=== PATIENT | female | born 1985 | race American Indian/Alaskan Native ===

== ENCOUNTER 2016-10-08 11:09 | Emergency (ER) | payer OTHER ==
[2016-10-08 11:22] VITALS: BP 95/66; PULSE 100; TEMP 98; BMI 24.7
[2016-10-08 11:58] LABS: URINE APPEARANCE SLCLOUDY; URINE BILIRUBIN NEGATIVE (NEGATIVE); URINE BLOOD NEGATIVE (NEGATIVE); URINE COLOR YELLOW; URINE GLUCOSE (UA) NEGATIVE (NEGATIVE); URINE KETONE NEGATIVE (NEGATIVE); URINE LEUK ESTERASE NEGATIVE (NEGATIVE); URINE NITRITE NEGATIVE (NEGATIVE); URINE PROTEIN NEGATIVE (NEGATIVE); URINE UROBILINOGEN NEGATIVE E.U./dl (0.2-1.0)
[2016-10-08] MEDS ORDERED: SODIUM CHLORIDE 1,000 ML IV STA (12:03)
[2016-10-08] MEDS ORDERED: PANTOPRAZOLE SODIUM 40 MG in SODIUM CHLORIDE 100 ML IVPB ONE (12:03)
[2016-10-08] MEDS ORDERED: PANTOPRAZOLE SODIUM 100 ML IVPB ONE (12:05)
[2016-10-08 12:12] LABS: BASOPHIL 1.2 % (0-2.0); EOSINOPHIL 3.5 % (0-4.5); MCH 28.8 pg (25.7-33.7); MCHC 35.2 g/dl (32.0-36.0); MEAN CELL VOLUME 81.8 fl (80-96); MEAN PLT VOLUME 6.8 fl (7.5-11.1); NEUTROPHILS 48.2 % (42.8-82.8); PLATELET COUNT 215 K/MM3 (134-434); RDW 13.6 % (11.6-15.6); WHITE BLOOD COUNT 4.5 K/mm3 (4.0-10.0)
--- NOTE | 2016-10-08 12:18 | PDOC ---
History of Present Illness - General Chief Complaint: Pain Stated Complaint: 12 wks preg ABD PAIN Time Seen by Provider: 10/08/16 11:35 History Source: Patient Exam Limitations: No Limitations - History of Present Illness Travel History: No Initial Comments: 10/08/16 12:08 31-year-old female currently 12 weeks presents with epigastric pain worsened with eating over the past few days. Patient also said lower abdominal cramping for the past week associated constipation. Patient states took no medication for the above and decided come to the ER for further evaluation. Patient states has had a normal ultrasound for this and has mentioned the epigastric pain to her APRICOT WASHER who recommended her to take Maalox which she states has taken without improvement. Patient denies chest pain, shortness of breath, dysuria, hematuria, vaginal discharge, low back pain, change in appetite , or recent illness. Timing/Duration: reports: intermittent Quality: reports: mild, burning Abdominal Pain Onset Location: reports: epigastric Pain Radiation: reports: RLQ, LLQ Activities at Onset: reports: none Aggravating Factors: improves with: Eating Alleviating Factors: improves with: None Past History - Past Medical History Allergies/Adverse Reactions: Allergies Allergy/AdvReac Type Severity Reaction Status Date / Time No Known Allergies Allergy Verified 10/08/16 11:18 Home Medications: Ambulatory Orders Docusate Sodium [Colace -] 100 mg PO BID #60 capsule 06/20/16 Esomeprazole Magnesium [Nexium 24Hr] 20 mg PO DAILY 06/20/16 Esomeprazole Sodium 20 mg PO DAILY #20 vial 06/20/16 Hydrocortisone Acetate [Anusol Hc Suppository -] 25 mg RC DAILY #14 supp.rect Polyethylene Glycol 3350 [Miralax (For Bowel Prep) -] 17 gm PO DAILY #1 bottle 06/20/16 GI Disorders: Yes (ULCER) - Reproductive History Is Patient Now?: Yes (#): 4 Para: 3 - Psycho/Social/Smoking Cessation Hx Anxiety: No Suicidal Ideation: No Smoking History: Never smoked Have you smoked in the past 12 months: No Information on smoking cessation initiated: No Hx Alcohol Use: No Drug/Substance Use Hx: No Substance Use Type: None Patient Lives Alone: No Lives with/in: spouse/SO Review of Systems - Review of Systems Able to Perform ROS?: Yes Constitutional: No: Symptoms Reported HEENTM: No: Symptoms Reported Respiratory: No: Symptoms reported Cardiac (ROS): No: Symptoms Reported ABD/GI: Yes: Constipated, Abdominal cramping : No: Symptoms Reported Musculoskeletal: No: Symptoms Reported Integumentary: No: Symptoms Reported Neurological: No: Symptoms reported Endocrine: No: Symptoms Reported *Physical Exam - Vital Signs Last Vital Signs Temp Pulse Resp BP Pulse Ox 98.0 F 100 H 18 95/66 100 10/08/16 11:19 10/08/16 11:19 10/08/16 11:19 10/08/16 11:19 10/08/16 11:19 - Physical Exam General Appearance: Yes: Nourished, Appropriately Dressed. No: Apparent Distress HEENT: positive: EOMI. negative: Pale Conjunctivae Neck: positive: Normal Thyroid, Supple Respiratory/Chest: positive: Lungs Clear, Normal Breath Sounds. negative: Respiratory Distress, Accessory Muscle Use Cardiovascular: positive: Regular Rhythm, Regular Rate. negative: Murmur Female Pelvic Exam: positive: normal external exam (no discharge or bleeding) Gastrointestinal/Abdominal: positive: Soft, Tenderness (epigastric and lower periumbilical) Musculoskeletal: negative: CVA Tenderness Extremity: positive: Normal Capillary Refill. negative: Pedal Edema Integumentary: positive: Normal Color, Warm, Moist Neurologic: positive: Motor Strength 5/5 (ambulatory) ED Treatment Course - LABORATORY CBC & Chemistry Diagram: 10/08/16 11:37 10/08/16 11:37 - RADIOLOGY Radiology Studies Ordered: Category Date Time Status <14WKS US [US] Stat Ultrasound 10/08/16 12:03 Ordered Medical Decision Making - Medical Decision Making 10/08/16 12:21 Patient currently 12 weeks with indigestion and constipation. Patient on exam had epigastric tenderness and lower periumbilical pain. Patient ordered for urine, labs, IV fluids, Protonix, an ultrasound. 10/08/16 13:47 Laboratory Tests 10/08/16 10/08/16 10/08/16 11:37 11:37 11:37 WBC 4.5 Hgb 11.3 Hct 32.2 L Plt Count 215 D Neutrophils % 48.2 D Sodium 137 Potassium 3.7 Chloride 105 Carbon Dioxide 23 Anion Gap 9 BUN 10 D Creatinine 0.5 L D Creat Clearance w eGFR > 60 Random Glucose 75 Calcium 7.9 L Magnesium 1.8 Total Bilirubin 0.5 D AST 15 D ALT 15 Alkaline Phosphatase 42 L D Total Protein 5.7 L Albumin 2.8 L Urine Glucose (UA) Negative Urine Ketones Negative Urine Nitrite Negative Ur Leukocyte Esterase Negative 10/08/16 13:48 Ultrasound shows single viable intermittent gestation approximately 13 weeks 1 day with a heart rate of 1 53 bpm. Patient will be sent home with Protonix and recommended to take Tylenol for discomfort. Patient recommended to purchase [id number] Colace for constipation drink plenty of fluids and add fiber to diet Patient to follow-up with her APRICOT WASHER. *DC/Admit/Observation/Transfer Diagnosis at time of Disposition: Constipation Gastroesophageal reflux disease Qualifiers: Esophagitis presence: without esophagitis Qualified Code(s): K21.9 - Gastro- esophageal reflux disease without esophagitis - Discharge Dispostion Disposition: HOME Condition at time of disposition: Improved - Patient Instructions Printed Discharge Instructions: Increased Dietary Fiber May Improve Constipation Conditions With Pelvic Willy, DI for Constipation, DI for Gastroesophageal Reflux Disease (GERD) Additional Instructions: Please drink plenty of fluids and add fiber to diet. You may take [id number] Colace for constipation. May take Tylenol for any discomfort. And take Protonix Pepcid as prescribed for epigastric discomfort
[2016-10-08 12:45] LABS: ALBUMIN 2.8 g/dl (3.4-5.0); ANION GAP 9 (8-16); CALCIUM 7.9 mg/dL (8.5-10.1); CO2 23 mmol/L (21-32); CREATININE 0.5 mg/dL (0.55-1.02); GLUCOSE,RANDOM 75 mg/dL (74-106); MAGNESIUM 1.8 mg/dL (1.8-2.4); SGOT/AST 15 U/L (15-37); SGPT/ALT 15 U/L (12-78)
[2016-10-08 12:47] LABS: ALK PHOS 42 U/L (45-117); BILIRUBIN,TOTAL 0.5 mg/dL (0.2-1.0); TOT PROT 5.7 g/dl (6.4-8.2)
== END 2016-10-08 14:08 | disposition home or self-care (01) ==
LOC: JER 11:09
PROC: 3E033GC Introduction of Other Therapeutic Substance into Peripheral Vein, Percutaneous Approach (ICD-10-PCS; principal; 2016-10-08)
DX: O99.89 Other specified diseases and conditions complicating pregnancy, childbirth and the puerperium (principal); K59.00 Constipation, unspecified; K21.9 Gastro-esophageal reflux disease without esophagitis; Z3A.13 13 weeks gestation of pregnancy
CPT/HCPCS: 36415; 76801-TC; 80053; 81003; 83735; 85025; 96365; 99282-25

== ENCOUNTER 2016-11-24 20:18 | Emergency (ER) | payer OTHER ==
[2016-11-24 20:25] VITALS: BP 108/52; PULSE 97; TEMP 99; BMI 25.6
[2016-11-24 20:55] LABS: URINE APPEARANCE CLEAR; URINE BILIRUBIN NEGATIVE (NEGATIVE); URINE BLOOD NEGATIVE (NEGATIVE); URINE COLOR YELLOW; URINE GLUCOSE (UA) NEGATIVE (NEGATIVE); URINE KETONE NEGATIVE (NEGATIVE); URINE LEUK ESTERASE NEGATIVE (NEGATIVE); URINE NITRITE NEGATIVE (NEGATIVE); URINE PROTEIN NEGATIVE (NEGATIVE); URINE UROBILINOGEN NEGATIVE E.U./dl (0.2-1.0)
[2016-11-24] MEDS ORDERED: SODIUM PHOSPHATE/NA BIPHOS 133 ML ENEMA PR ONE (22:04)
[2016-11-24 22:13] LABS: EOSINOPHIL 3.1 % (0-4.5); MCH 29.6 pg (25.7-33.7); MCHC 34.6 g/dl (32.0-36.0); MEAN CELL VOLUME 85.5 fl (80-96); MEAN PLT VOLUME 7.1 fl (7.5-11.1); NEUTROPHILS 54.3 % (42.8-82.8); PLATELET COUNT 202 K/MM3 (134-434); RDW 13.4 % (11.6-15.6); WHITE BLOOD COUNT 5.1 K/mm3 (4.0-10.0)
[2016-11-24 22:39] LABS: ALBUMIN 2.3 g/dl (3.4-5.0); ANION GAP 7 (8-16); BILIRUBIN,TOTAL 0.2 mg/dL (0.2-1.0); CALCIUM 7.9 mg/dL (8.5-10.1); CO2 26 mmol/L (21-32); CREATININE 0.5 mg/dL (0.55-1.02); GLUCOSE,RANDOM 75 mg/dL (74-106); SGOT/AST 14 U/L (15-37); SGPT/ALT 11 U/L (12-78); TOT PROT 4.9 g/dl (6.4-8.2)
[2016-11-24 22:54] LABS: ALK PHOS 36 U/L (45-117)
--- NOTE | 2016-11-25 00:34 | PDOC ---
*Physical Exam - Vital Signs Last Vital Signs Temp Pulse Resp BP Pulse Ox 99 F 97 H 18 108/52 99 11/24/16 20:23 11/24/16 20:23 11/24/16 20:23 11/24/16 20:23 11/24/16 20:23 ED Treatment Course - LABORATORY CBC & Chemistry Diagram: 11/24/16 22:05 11/24/16 22:05 - ADDITIONAL ORDERS Additional order review: Laboratory Results 11/24/16 11/24/16 22:05 20:40 Sodium 140 Potassium 3.8 Chloride 107 Carbon Dioxide 26 Anion Gap 7 L BUN 10 Creatinine 0.5 L Creat Clearance w eGFR > 60 Random Glucose 75 Calcium 7.9 L Total Bilirubin 0.2 D AST 14 L ALT 11 L D Alkaline Phosphatase 36 L Total Protein 4.9 L Albumin 2.3 L Beta HCG, Quant 43875.1 Urine Color Yellow Urine Appearance Clear Urine pH 5.0 Ur Specific [place] 1.025 Urine Protein Negative Urine Glucose (UA) Negative Urine Ketones Negative Urine Blood Negative Urine Nitrite Negative Urine Bilirubin Negative Urine Urobilinogen Negative Ur Leukocyte Esterase Negative 11/24/16 22:05 RBC 3.14 L D MCV 85.5 MCHC 34.6 RDW 13.4 MPV 7.1 L Neutrophils % 54.3 Lymphocytes % 36.0 Monocytes % 5.6 Eosinophils % 3.1 Basophils % 1.0 - Medications Given in the ED: ED Medications Discontinued Medications Generic Name Dose Route Start Last Admin Trade Name Freq PRN Reason Stop Dose Admin Sodium Phosphate 133 ml 11/24/16 22:04 11/25/16 00:21 Fleet Adult Rectal Enema - [place] 11/24/16 22:05 133 ml ONCE ONE Administration Medical Decision Making - Medical Decision Making 11/25/16 00:33 agree with care from MARIA FERNAN[facility] *DC/Admit/Observation/Transfer Diagnosis at time of Disposition: Constipation Qualifiers: Constipation type: other constipation type Qualified Code(s): K59.09 - Other constipation Qualifiers: Weeks of gestation: 19 weeks Qualified Code(s): Z3A.19 - 19 weeks gestation of - Discharge Dispostion Disposition: HOME Condition at time of disposition: Stable Admit: No - Prescriptions Prescriptions: Docusate Sodium [Colace -] 100 mg PO BID #60 capsule Polyethylene Glycol 3350 [Miralax (For Bowel Prep) -] 17 gm PO DAILY #1 bottle - Referrals Referrals: Heidi Paz MD [Primary Care Provider] - - Patient Instructions Printed Discharge Instructions: Medications and , DI for Constipation , Increased Dietary Fiber May Improve Constipation Conditions With Pelvic Willy Print Language: NEPALI
--- NOTE | 2016-11-25 01:10 | PDOC ---
History of Present Illness - General Chief Complaint: Pain Stated Complaint: PAIN Time Seen by Provider: 11/24/16 20:41 - History of Present Illness Initial Comments: 11/25/16 00:57 CHIEF COMPLAINT: abdominal pain HISTORY OF PRESENT ILLNESS: 31 yo F with no significant PMH presents to ED with abdominal pain and constipation. Patient reports that she has not had a bowel movement in 10 days. She reports nausea but no vomiting. She denies any vaginal bleeding. No recent travel or sick contacts. PAST MEDICAL HISTORY: Denies past medical history FAMILY HISTORY: Denies SOCIAL HISTORY: Denies tobacco, alcohol, illicit drug use. SURGICAL HISTORY: Denies ALLERGIES: No known drug allergies REVIEW OF SYSTEMS General/Constitutional: Denies fever or chills. Denies weakness, weight change. HEENT: Denies change in vision. Denies ear pain or discharge. Denies sore throat. Cardiovascular: Denies chest pain or shortness of breath. Respiratory: Denies cough, wheezing, or hemoptysis. Gastrointestinal: Denies nausea, vomiting, diarrhea or constipation. Denies rectal bleeding. Genitourinary: Denies dysuria, frequency, or change in urination. Musculoskeletal: Denies joint or muscle swelling or pain. Denies neck or back pain. Skin and breasts: Denies rash or easy bruising. Neurologic: Denies headache, vertigo, loss of consciousness, or loss of sensation. PHYSICAL EXAM General Appearance: Well-appearing, appropriately dressed. No apparent distress. HEENT: EOMI, PERRLA, normal ENT inspection, normal voice, TMs normal, pharynx normal. No conjunctival pallor. No photophobia, scleral icterus. Neck: Supple. Trachea midline. No tenderness, rigidity, carotid bruit, stridor , lymphadenopathy, or thyromegaly. Respiratory/Chest: Lungs CTAB. Cardiovascular: RRR. S1, S2. Gastrointestinal/Abdominal: Normal bowel sounds. Abdomen soft, non-distended. No tenderness or rebound tenderness. No organomegaly, pulsatile mass, guarding , hernia, hepatomegaly, splenomegaly. Musculoskeletal/Extremities: Normal inspection. FROM of all extremities, normal capillary refill. Pelvis Stable. No CVA tenderness. No tenderness to extremities, pedal edema, swelling, erythema or deformity. Integumentary: Appropriate color, dry, warm. No cyanosis, erythema, jaundice or rash Neurologic: efficiency engineer II-XII intact. Fully oriented, alert. Appropriate mood/affect. Motor strength 5/5. No appreciable EOM palsy, facial droop or sensory deficit. Past History - Past Medical History Allergies/Adverse Reactions: Allergies Allergy/AdvReac Type Severity Reaction Status Date / Time No Known Allergies Allergy Verified 11/24/16 20:23 Home Medications: Ambulatory Orders Esomeprazole Magnesium [Nexium 24Hr] 20 mg PO DAILY 06/20/16 Esomeprazole Sodium 20 mg PO DAILY #20 vial 06/20/16 Hydrocortisone Acetate [Anusol Hc Suppository -] 25 mg RC DAILY #14 supp.rect Polyethylene Glycol 3350 [Miralax (For Bowel Prep) -] 17 gm PO DAILY #1 bottle 06/20/16 Famotidine [Pepcid] 20 mg PO DAILY #21 tablet 10/08/16 Docusate Sodium [Colace -] 100 mg PO BID #60 capsule 11/25/16 Polyethylene Glycol 3350 [Miralax (For Bowel Prep) -] 17 gm PO DAILY #1 bottle 11/25/16 GI Disorders: Yes (ULCER) - Reproductive History Is Patient Now?: Yes (#): 4 Para: 3 - Psycho/Social/Smoking Cessation Hx Anxiety: No Suicidal Ideation: No Smoking History: Never smoked Have you smoked in the past 12 months: No Hx Alcohol Use: No Drug/Substance Use Hx: No Substance Use Type: None *Physical Exam - Vital Signs Last Vital Signs Temp Pulse Resp BP Pulse Ox 99 F 97 H 18 108/52 99 11/24/16 20:23 11/24/16 20:23 11/24/16 20:23 11/24/16 20:23 11/24/16 20:23 ED Treatment Course - LABORATORY CBC & Chemistry Diagram: 11/24/16 22:05 11/24/16 22:05 - ADDITIONAL ORDERS Additional order review: Laboratory Results 11/24/16 11/24/16 22:05 20:40 Sodium 140 Potassium 3.8 Chloride 107 Carbon Dioxide 26 Anion Gap 7 L BUN 10 Creatinine 0.5 L Creat Clearance w eGFR > 60 Random Glucose 75 Calcium 7.9 L Total Bilirubin 0.2 D AST 14 L ALT 11 L D Alkaline Phosphatase 36 L Total Protein 4.9 L Albumin 2.3 L Beta HCG, Quant 90813.1 Urine Color Yellow Urine Appearance Clear Urine pH 5.0 Ur Specific [place] 1.025 Urine Protein Negative Urine Glucose (UA) Negative Urine Ketones Negative Urine Blood Negative Urine Nitrite Negative Urine Bilirubin Negative Urine Urobilinogen Negative Ur Leukocyte Esterase Negative 11/24/16 22:05 RBC 3.14 L D MCV 85.5 MCHC 34.6 RDW 13.4 MPV 7.1 L Neutrophils % 54.3 Lymphocytes % 36.0 Monocytes % 5.6 Eosinophils % 3.1 Basophils % 1.0 - RADIOLOGY Radiology Studies Ordered: Category Date Time Status US(SINGLE) [US] Stat Ultrasound 11/24/16 21:42 Taken - Medications Given in the ED: ED Medications Discontinued Medications Generic Name Dose Route Start Last Admin Trade Name Freq PRN Reason Stop Dose Admin Sodium Phosphate 133 ml 11/24/16 22:04 11/25/16 00:21 Fleet Adult Rectal Enema - [place] 11/24/16 22:05 133 ml ONCE ONE Administration Medical Decision Making - Medical Decision Making 11/25/16 01:10 31 yo F with no significant PMH presents to ED with abdominal pain and constipation. -Fleet enema -CBC, CMP, beta hcg -TV US FINDINGS: There is a single live intrauterine with estimated gestational age of 19 weeks and 4 days. Presentation is cephalic. There is a anterior placenta. There is no placenta previa. Amniotic fluid volume is grossly normal. cardiac activity is 144 beats per minute. Cervical length is3.7cm.,closed. Read by: Gal Oneill MD 11/25/16 01:11 Patient was able to pass small BM. Miralax and colace rx sent to pharm. Patient discharged to home with BANK ACCOUNTANT follow up. 11/25/16 01:12 *DC/Admit/Observation/Transfer Diagnosis at time of Disposition: Constipation Qualifiers: Constipation type: other constipation type Qualified Code(s): K59.09 - Other constipation Qualifiers: Weeks of gestation: 19 weeks Qualified Code(s): Z3A.19 - 19 weeks gestation of - Discharge Dispostion Disposition: HOME Condition at time of disposition: Stable - Prescriptions Prescriptions: Docusate Sodium [Colace -] 100 mg PO BID #60 capsule Polyethylene Glycol 3350 [Miralax (For Bowel Prep) -] 17 gm PO DAILY #1 bottle - Referrals Referrals: Heidi Paz MD [Primary Care Provider] - - Patient Instructions Printed Discharge Instructions: Medications and , Increased Dietary Fiber May Improve Constipation Conditions With Pelvic Willy, DI for Constipation Print Language: ITALIAN - Post Discharge Activity
== END 2016-11-25 00:41 | disposition home or self-care (01) ==
LOC: JER 20:18
DX: K59.09 Other constipation (principal); Z3A.19 19 weeks gestation of pregnancy
CPT/HCPCS: 36415; 76801-TC; 80053; 81003; 84702; 85025; 87086; 99282-25

== ENCOUNTER 2016-12-02 19:00 | Emergency (ER) | payer OTHER ==
[2016-12-02 19:10] VITALS: BMI 22.1
[2016-12-02 20:31] VITALS: BP 98/55; PULSE 88; TEMP 98.9
== END 2016-12-02 20:55 | disposition home or self-care (01) ==
LOC: JER 19:00
DX: O26.892 Other specified pregnancy related conditions, second trimester (principal); R10.30 Lower abdominal pain, unspecified; Z3A.20 20 weeks gestation of pregnancy
CPT/HCPCS: 99281-25

== ENCOUNTER 2017-01-04 13:12 | Emergency (ER) | payer OTHER ==
[2017-01-04 13:18] VITALS: BMI 21.9
[2017-01-04] MEDS ORDERED: MAG HYDROX/AL HYDROX/SIMETH 355 ML ORAL.SUSP PO ONE (13:28)
[2017-01-04] MEDS ORDERED: SODIUM CHLORIDE 1,000 ML IV ONE (13:28)
[2017-01-04] MEDS ORDERED: FAMOTIDINE 20 MG/50 ML IVPB 20 MG in PREMIX 50 IVPB ONE (13:28)
--- NOTE | 2017-01-04 13:28 | PDOC ---
History of Present Illness - General Chief Complaint: Vomiting Blood Stated Complaint: VOMITING Past History - Past Medical History Allergies/Adverse Reactions: Allergies Allergy/AdvReac Type Severity Reaction Status Date / Time No Known Allergies Allergy Verified 01/04/17 13:18 Home Medications: Ambulatory Orders Esomeprazole Magnesium [Nexium 24Hr] 20 mg PO DAILY 06/20/16 Esomeprazole Sodium 20 mg PO DAILY #20 vial 06/20/16 Hydrocortisone Acetate [Anusol Hc Suppository -] 25 mg RC DAILY #14 supp.rect Polyethylene Glycol 3350 [Miralax (For Bowel Prep) -] 17 gm PO DAILY #1 bottle 06/20/16 Famotidine [Pepcid] 20 mg PO DAILY #21 tablet 10/08/16 Docusate Sodium [Colace -] 100 mg PO BID #60 capsule 11/25/16 Polyethylene Glycol 3350 [Miralax (For Bowel Prep) -] 17 gm PO DAILY #1 bottle 11/25/16 Pantoprazole Sodium 40 mg IV DAILY #30 vial 01/04/17 GI Disorders: Yes (ULCER) - Reproductive History (#): 4 Para: 3 - Psycho/Social/Smoking Cessation Hx Anxiety: No Suicidal Ideation: No Smoking History: Never smoked Have you smoked in the past 12 months: No Hx Alcohol Use: No Drug/Substance Use Hx: No Substance Use Type: None *Physical Exam - Vital Signs Last Vital Signs Temp Pulse Resp BP Pulse Ox 98.1 F 92 H 18 79/62 100 01/04/17 13:13 01/04/17 13:13 01/04/17 13:13 01/04/17 13:13 01/04/17 13:13 ED Treatment Course - LABORATORY CBC & Chemistry Diagram: 01/04/17 13:50 01/04/17 13:50 Medical Decision Making - Medical Decision Making 01/06/17 09:34 please see resident note and attending attestation *DC/Admit/Observation/Transfer Diagnosis at time of Disposition: - Discharge Dispostion Disposition: HOME Condition at time of disposition: Good - Prescriptions Prescriptions: Pantoprazole Sodium 40 mg IV DAILY #30 vial - Referrals Referrals: Heidi Paz MD [Primary Care Provider] - - Patient Instructions Printed Discharge Instructions: DI for Gastritis Additional Instructions: Your abdominal pain and vomiting are most likely caused by gastritis. Please take pantoprazole daily to relieve the symptoms. you can also take maalox. Follow you upstairs for monitoring and see your OBGYN within the next few days. Please return to ER if severe symptoms persist or if you develop vaginal bleeding. Follow up with a dairy husbandman after . 2150-PATIENT DISCHARGE HOME FROM THE L&D DEPT, STABLE UNDELIVERED,DISCHARGE INSTRUCTIONS GIVEN WITH GOOD FEEDBACK FROM PT. PT INSTRUCTED TO BEDREST, DIET TOLERATED, DRINK PLENTY OF FLUIDS AT LEAST 8 GLASSES OF WATER DAILY. CALL MD IF CONTRACTIONS REG/ST EVERY 5 MINS FOR 1 HOUR, DECREASED MOVEMENT, RUPTURE OF MEMBRANES OR IF VAGINAL BLEEDING OCCUR. KEEP NEXT MD APPOINTMENT NEXT WEEK.
[2017-01-04] MEDS ORDERED: METOCLOPRAMIDE HCL INJECTION 10 MG/2 ML VIAL IVPUSH ONE (13:29)
[2017-01-04] MEDS ORDERED: METOCLOPRAMIDE HCL INJECTION 10 MG/2 ML VIAL ONE (13:53)
[2017-01-04] MEDS ORDERED: FAMOTIDINE 20 MG/50 ML IVPB 50 ML IVPB ONE (13:53)
[2017-01-04] MEDS ORDERED: MAG HYDROX/AL HYDROX/SIMETH 30 ML UNIT-DOSE CUP ONE (13:53)
[2017-01-04 13:56] LABS: BASOPHIL 0.7 % (0-2.0); EOSINOPHIL 3.8 % (0-4.5); MCHC 34.7 g/dl (32.0-36.0); MEAN CELL VOLUME 83.5 fl (80-96); MEAN PLT VOLUME 7.4 fl (7.5-11.1); NEUTROPHILS 63.9 % (42.8-82.8); PLATELET COUNT 212 K/MM3 (134-434); RDW 12.5 % (11.6-15.6); WHITE BLOOD COUNT 5.1 K/mm3 (4.0-10.0)
--- NOTE | 2017-01-04 14:07 | PDOC ---
History of Present Illness - General Chief Complaint: Vomiting Blood Stated Complaint: VOMITING Time Seen by Provider: 01/04/17 13:42 History Source: Patient, Family Exam Limitations: Language Barrier - History of Present Illness Initial Comments: 01/04/17 14:07 This is a 31 yo F 7 mo , with no PMH, previously assessed in ED for abd pain/v 3 x during current , who presents to ED with abd pain, n /v. Her symptoms started 3 mo before she was gregnant and have since gotten worse. She tried ranitidine with only initial relief minimal relief andno relief recently and maaloxm with minimal initial relief but increased constipation side effect due to which she d/cd this med. She has been unable to undergo egd due to . Her usual epigastric pain is burning and is not is any was affected by meals/fasting. Her current complaints are somewhat different because the last 3 eps of v had a bit of bright red blood in vomitus and her abd pain in no longer just epigastric but is now in RLQ, radiating to flank and R thigh. She also complains of dysuria. Her has been thus fun uncomplicated. she denies f/c, diarrhea, coffee ground emesis, dizziness, h/ a, sob, palpitations, chest pain, cout, calf pain. 01/04/17 14:07 01/04/17 14:33 Past History - Past Medical History Allergies/Adverse Reactions: Allergies Allergy/AdvReac Type Severity Reaction Status Date / Time No Known Allergies Allergy Verified 01/04/17 13:18 Home Medications: Ambulatory Orders Esomeprazole Magnesium [Nexium 24Hr] 20 mg PO DAILY 06/20/16 Esomeprazole Sodium 20 mg PO DAILY #20 vial 06/20/16 Hydrocortisone Acetate [Anusol Hc Suppository -] 25 mg RC DAILY #14 supp.rect Polyethylene Glycol 3350 [Miralax (For Bowel Prep) -] 17 gm PO DAILY #1 bottle 06/20/16 Famotidine [Pepcid] 20 mg PO DAILY #21 tablet 10/08/16 Docusate Sodium [Colace -] 100 mg PO BID #60 capsule 11/25/16 Polyethylene Glycol 3350 [Miralax (For Bowel Prep) -] 17 gm PO DAILY #1 bottle 11/25/16 Pantoprazole Sodium 40 mg IV DAILY #30 vial 01/04/17 GI Disorders: Yes (ULCER) - Reproductive History (#): 4 Para: 3 - Psycho/Social/Smoking Cessation Hx Anxiety: No Suicidal Ideation: No Smoking History: Never smoked Have you smoked in the past 12 months: No Hx Alcohol Use: No Drug/Substance Use Hx: No Substance Use Type: None Review of Systems - Review of Systems Able to Perform ROS?: Yes Is the patient limited Irish proficient: Yes Constitutional: No: Chills, Fever, Unexplained wgt Loss HEENTM: No: Double Vision, Nose Congestion, Throat Pain Respiratory: No: Cough, Orthopnea, Shortness of Breath Cardiac (ROS): No: Chest Pain, Irregular Heart Rate, Lightheadedness, Palpitations, Syncope ABD/GI: Yes: Nausea, Vomiting. No: Abdominal Distended, Blood Streaked Bowels, Constipated, Diarrhea, Difficulty Swallowing, Rectal Bleeding, Abdominal cramping : Yes: Dysuria, Flank Pain (R) Musculoskeletal: No: Joint Pain, Neck Pain Integumentary: No: Bruising, Erythema, Rash Neurological: No: Headache, Numbness, Paresthesia Psychiatric: No: Anxiety Endocrine: No: Intolerance to Cold, Intolerance to Heat Hematologic/Lymphatic: No: Anemia, Blood Clots All Other Systems: Reviewed and Negative *Physical Exam - Vital Signs Last Vital Signs Temp Pulse Resp BP Pulse Ox 98.1 F 92 H 18 106/58 100 01/04/17 13:13 01/04/17 13:13 01/04/17 13:13 01/04/17 13:47 01/04/17 13:13 - Physical Exam Comments: 01/04/17 14:43 General: NAD AAOx3 HEENT:PERRLA EOMI, sclera anicteric, conjunctiva clear CV: RRR S1S2 Pulm: CTA b/l GI: gravid, soft, moderately tender RLQ, RUQ, epigastric area, nondistended, normoactive bowel sounds. + mild R CVA tenderness Neuro: CN II-XII grossly intact Musculoskeletal: no peripheral edema or calf tenderness ED Treatment Course - LABORATORY CBC & Chemistry Diagram: 01/04/17 13:50 01/04/17 13:50 - ADDITIONAL ORDERS Additional order review: 01/04/17 13:50 RBC 3.34 L MCV 83.5 MCHC 34.7 RDW 12.5 MPV 7.4 L Neutrophils % 63.9 Lymphocytes % 26.2 D Monocytes % 5.4 Eosinophils % 3.8 Basophils % 0.7 - Medications Given in the ED: ED Medications Discontinued Medications Generic Name Dose Route Start Last Admin Trade Name Kayla PRN Reason Stop Dose Admin Al Hydroxide/Mg Hydroxide 30 ml 01/04/17 13:28 01/04/17 14:01 Mylanta Suspension - PO 01/04/17 13:29 30 dose ONCE ONE Administration Famotidine/Sodium Chloride 20 50 mls @ 100 mls/hr 01/04/17 13:28 01/04/17 14:02 mg/ Miscellaneous IVPB 01/04/17 13:57 100 mls/hr ONCE ONE Administration Metoclopramide HCl 10 mg 01/04/17 13:29 01/04/17 14:03 Reglan Injection - IVPUSH 01/04/17 13:30 10 mg ONCE ONE Administration Medical Decision Making - Medical Decision Making 01/04/17 14:44 7 mo Gravid patient presents with recurrent epigastric pain, n and blood streaked vomitus as well and R flank pain with dysuria. Afebrile. cbc w diff, cmp, lactate, ua ppi, mylanta, IVF NS 1L, reglan, famotidine. 01/04/17 14:46 01/04/17 15:04 CBC stable anemia from last admission 9.7 CMP unremarkable UA p/d 01/04/17 17:04 Plan to send patient upstairs for outpatient monitoring. 01/04/17 18:15 UA unremarkable 01/04/17 18:17 *DC/Admit/Observation/Transfer Diagnosis at time of Disposition: - Discharge Dispostion Disposition: HOME Condition at time of disposition: Good Admit: No - Prescriptions Prescriptions: Pantoprazole Sodium 40 mg IV DAILY #30 vial - Patient Instructions Printed Discharge Instructions: DI for Gastritis Additional Instructions: Your abdominal pain and vomiting are most likely caused by gastritis. Please take pantoprazole daily to relieve the symptoms. you can also take maalox. Follow you upstairs for monitoring and see your OBGYN within the next few days. Please return to ER if severe symptoms persist or if you develop vaginal bleeding. Follow up with a geomatics professor after .
[2017-01-04] MEDS ORDERED: PANTOPRAZOLE SODIUM 40 MG in SODIUM CHLORIDE 100 ML IVPB ONE (14:33)
[2017-01-04 14:41] LABS: ALBUMIN 2.4 g/dl (3.4-5.0); ANION GAP 7 (8-16); BILIRUBIN,TOTAL 0.4 mg/dL (0.2-1.0); CALCIUM 7.8 mg/dL (8.5-10.1); CO2 26 mmol/L (21-32); CREATININE 0.4 mg/dL (0.55-1.02); GLUCOSE,RANDOM 72 mg/dL (74-106); SGOT/AST 18 U/L (15-37); SGPT/ALT 14 U/L (12-78)
[2017-01-04 14:42] LABS: ALK PHOS 45 U/L (45-117); TOT PROT 5.4 g/dl (6.4-8.2)
[2017-01-04 15:55] VITALS: PULSE 80
[2017-01-04] MEDS ORDERED: PANTOPRAZOLE SODIUM 100 ML IVPB ONE (15:58)
--- NOTE | 2017-01-04 17:10 | PDOC ---
Attending Attestation - Resident Resident Name: Jazmin Perkins - ED Attending Attestation I have performed the following: I have examined & evaluated the patient, The case was reviewed & discussed with the resident, I agree w/resident's findings & plan - HPI HPI: 01/04/17 17:10 31y F at 7 months gestation presents for epigastric pain associated with nausea/vomiting c/w prior gerd, although pt endorses having mild RLQ pain and some dysuria and had some blood streaked vomitus. No associated melena, bpr, fever/chills, coffee ground emesis. pts exam noted for no tenderness prior to discharge and pt is otherwise well appearing and feels significantly improved gastritis diet instructions were given her labs are unremarkable do not suspect appendicits suspect gerd/acid reflux and pt improved with pepcid/maalox awaiting UA to r/o UTI will d/c the pt to L&D for monitoring return precautions were discussed - Physicial Exam PE: 01/04/17 17:12 see above - Medical Decision Making 01/04/17 17:13 see above
[2017-01-04 17:35] LABS: URINE APPEARANCE CLEAR; URINE BILIRUBIN NEGATIVE (NEGATIVE); URINE BLOOD NEGATIVE (NEGATIVE); URINE COLOR YELLOW; URINE GLUCOSE (UA) NEGATIVE (NEGATIVE); URINE KETONE 1+ (NEGATIVE); URINE LEUK ESTERASE NEGATIVE (NEGATIVE); URINE NITRITE NEGATIVE (NEGATIVE); URINE PROTEIN NEGATIVE (NEGATIVE); URINE UROBILINOGEN NEGATIVE E.U./dl (0.2-1.0)
[2017-01-04 20:08] VITALS: BP 91/41; TEMP 98.8
== END 2017-01-04 20:56 | disposition home or self-care (01) ==
LOC: JER 13:12
PROC: 3E0337Z Introduction of Electrolytic and Water Balance Substance into Peripheral Vein, Percutaneous Approach (ICD-10-PCS; principal; 2017-01-04)
PROC: 3E033GC Introduction of Other Therapeutic Substance into Peripheral Vein, Percutaneous Approach (ICD-10-PCS; 2017-01-04)
PROC: 3E033GC Introduction of Other Therapeutic Substance into Peripheral Vein, Percutaneous Approach (ICD-10-PCS; 2017-01-04)
DX: O26.893 Other specified pregnancy related conditions, third trimester (principal); K29.60 Other gastritis without bleeding
CPT/HCPCS: 36415; 80053; 81003; 83690; 85025; 96361; 96365; 96367; 96375; 99283-25

== ENCOUNTER 2017-03-31 20:34 | Emergency (ER) | payer OTHER ==
[2017-03-31 20:55] VITALS: BP 108/59; PULSE 93; TEMP 98.6; BMI 24.7
== END 2017-03-31 22:01 | disposition left against medical advice (07) ==
LOC: JER 20:34
DX: Z53.21 Procedure and treatment not carried out due to patient leaving prior to being seen by health care provider (principal)
CPT/HCPCS: 99281-25

== ENCOUNTER 2017-04-17 06:30 | Inpatient (IN) | payer OTHER ==
[2017-04-17] MEDS ORDERED: TUBERCULIN PPD 5 TU/0.1ML SYRINGE (IN PATIENT USE ONLY) ID ONE (09:16)
[2017-04-17 09:47] VITALS: BMI 24.7
[2017-04-17 09:48] LABS: MCH 25.3 pg (25.7-33.7); MCHC 32.6 g/dl (32.0-36.0); MEAN CELL VOLUME 77.6 fl (80-96); MEAN PLT VOLUME 7.8 fl (7.5-11.1); PLATELET COUNT 109 K/MM3 (134-434); WHITE BLOOD COUNT 8.3 K/mm3 (4.0-10.0)
[2017-04-17] MEDS ORDERED: BUTORPHANOL TARTRATE 1 MG/ML VIAL IVPB ONE ×3 (10:00→17:15)
[2017-04-17] MEDS ORDERED: LACTATED RINGERS SOLUTION 1,000 ML IV SCH (10:00)
[2017-04-17 10:06] LABS: ANION GAP 11 (8-16); CO2 22 mmol/L (21-32); CREATININE 0.5 mg/dL (0.55-1.02); GLUCOSE,RANDOM 63 mg/dL (74-106)
[2017-04-17 10:08] LABS: INR 0.99 (0.82-1.09); PROTHROMBIN TIME (PATIENT) 10.9 SEC (9.98-11.88)
[2017-04-17 10:11] LABS: ACTIVATED PTT 24.7 SECONDS (26.9-34.4)
[2017-04-17] MEDS ORDERED: PROMETHAZINE HCL 25 MG/1 ML VIAL IVPB ONE ×3 (11:30→17:15)
[2017-04-17 11:43] LABS: BASOPHIL %. 1 % (0-2.0); METAMYELOCYTE 3 % (0-2); MYELOCYTE 3 % (0-2); TOTAL CELLS COUNTED 100
[2017-04-17 11:45] LABS: HIV 1 & 2 AB NEGATIVE; HIV 1 AGp24 NEGATIVE
[2017-04-17 11:48] LABS: ANISOCYTOSIS 1+; MICROCYTOSIS 1+; OVALOCYTE 1+
[2017-04-17] MEDS ORDERED: ELECTROLYTE-148 SOLN 1,000 ML IV SCH (17:15)
--- NOTE | 2017-04-17 20:14 | HP ---
Past Medical History - Admission Chief Complaint: Labor pain History of Present Illness: 32 yo @ 39.6 weeks gestation, EDC 04/18/17, presents c/o labor pain. She denies any ROM nor vaginal bleeding. Upon admission she was 1 cm dilated. Patient refuses to go home because of leg pain. History Source: Patient Limitations to Obtaining History: No Limitations - Past Medical History ...: 4 ...Para: 3 ...Term: 3 ...EDC by [facility]: 04/17/17 - Past Surgical History Past Surgical History: Yes: None Hx Myomectomy: No Hx Transabdominal Cerclage: No - Smoking History Smoking history: Never smoked Have you smoked in the past 12 months: No - Alcohol/Substance Use Hx Alcohol Use: No History of Substance Use: reports: None - Social History Usual Living Arrangement: Yes: With Spouse History of Recent Travel: No Home Medications - Allergies Allergies/Adverse Reactions: Allergies Allergy/AdvReac Type Severity Reaction Status Date / Time No Known Allergies Allergy Verified 03/31/17 20:54 - Home Medications Home Medications: Ambulatory Orders Esomeprazole Magnesium [Nexium 24Hr] 20 mg PO DAILY 06/20/16 Esomeprazole Sodium 20 mg PO DAILY #20 vial 06/20/16 Hydrocortisone Acetate [Anusol Hc Suppository -] 25 mg RC DAILY #14 supp.rect Polyethylene Glycol 3350 [Miralax (For Bowel Prep) -] 17 gm PO DAILY #1 bottle 06/20/16 Famotidine [Pepcid] 20 mg PO DAILY #21 tablet 10/08/16 Docusate Sodium [Colace -] 100 mg PO BID #60 capsule 11/25/16 Polyethylene Glycol 3350 [Miralax (For Bowel Prep) -] 17 gm PO DAILY #1 bottle 11/25/16 Pantoprazole Sodium 40 mg IV DAILY #30 vial 01/04/17 Family Disease History - Family Disease History Family History: Unremarkable Review of Systems - Review of Systems Constitutional: reports: No Symptoms Eyes: reports: No Symptoms HENT: reports: No Symptoms Neck: reports: No Symptoms Cardiovascular: reports: No Symptoms Respiratory: reports: No Symptoms Gastrointestinal: reports: No Symptoms Genitourinary: reports: Pain Breasts: reports: No Symptoms Reported Musculoskeletal: reports: No Symptoms Integumentary: reports: No Symptoms Neurological: reports: No Symptoms Psychiatric: reports: No Symptoms Pain Intensity: 9 Physical Exam - Maternity Vital Signs: Vital Signs Temperature 97.6 F 04/17/17 18:00 Pulse Rate 90 04/17/17 19:00 Respiratory Rate 20 04/17/17 19:00 Blood Pressure 125/76 04/17/17 19:00 O2 Sat by Pulse Oximetry (%) Constitutional: Yes: Well Nourished Eyes: Yes: WNL HENT: Yes: WNL Neck: Yes: Supple, Trachea Midline Cardiovascular: Yes: Regular Rate and Rhythm Lungs: Clear to auscultation - Abdominal Exam/OB Number of Fetuses: Single Presentation: Vertex Contractions: Yes Regularity: Regular - Vaginal Exam/OB Vaginal Bleediing: No Dilatation (cm): 1-2 Effacement (%): 60 Amniotic Membrane Status: Intact Station: -3 - Physical Exam ...Motor Strength: WNL Psychiatric: Yes: Alert, Oriented - Labs Lab Results: CBC, BMP 04/17/17 09:20 04/17/17 09:20 Problem List - Problems (1) Pain during labor Code(s): O99.89 - OTH DISEASES AND CONDITIONS COMPL PREG/CHLDBRTH R52 - PAIN, UNSPECIFIED Assessment/Plan Early labor Admit to L&D Analgesia as needed Anticipate
--- NOTE | 2017-04-17 20:23 | PN ---
Progress Note (short form) - Note Progress Note: Patient re-evaluated, she c/o moderate discomfort. She's status post 3 doses of stadol. FHR : Reassuring [place] : + contractions every 2 minutes VE : /-2 ASS / Plan : Active labor Pitocin augmentation Epidural anesthesia Anticipate Problem List - Problems (1) Pain during labor Code(s): O99.89 - OTH DISEASES AND CONDITIONS COMPL PREG/CHLDBRTH R52 - PAIN, UNSPECIFIED
[2017-04-17] MEDS ORDERED: OXYTOCIN 15 UNITS/ LR 250 ML 250 ML IVPB SCH (20:30)
[2017-04-17] MEDS: FENTANYL/BUPIVACAINE/NS/PF - PCEA - 50 ML DISP.SYRIN EP SCH (21:21)
[2017-04-17] MEDS ORDERED: LIDOCAINE HCL 4% PRESERVE-FREE 5 ML AMP ONE (22:52)
[2017-04-17] MEDS ORDERED: LIDOCAINE HCL 2% (20ML MULTI-DOSE VIAL) NR ONE (22:52)
[2017-04-17] MEDS ORDERED: EPINEPHrine/PF 1 MG/1 ML (1:1,000) AMPULE ONE (22:54)
[2017-04-17] MEDS ORDERED: ROPIVACAINE HCL 0.5% 30ML VIAL ONE (22:55)
[2017-04-17] MEDS: OXYTOCIN 20 UNITS in 0.9% NS 1,000 ML IV SCH (23:30)
[2017-04-17] MEDS ORDERED: BENZOCAINE 28 GM HEMORRHOIDAL OINTMENT TP PRN (23:33)
[2017-04-17] MEDS ORDERED: WITCH HAZEL 50% (TUCKS) 40 PAD/JAR PAD TP PRN (23:33)
[2017-04-17] MEDS ORDERED: BISACODYL 10 MG SUPP.RECT RC PRN (23:33)
[2017-04-17] MEDS ORDERED: IBUPROFEN 600 MG TABLET (FP) PO PRN (23:33)
[2017-04-17] MEDS ORDERED: BENZOCAINE 20% 57 GM BOTTLE TP PRN (23:33)
[2017-04-17] MEDS ORDERED: METHYLERGONOVINE MALEATE 0.2 MG/1 ML AMP IM PRN (23:33)
--- NOTE | 2017-04-17 23:36 | PN ---
Delivery - Delivery Vaginal Delivery: Spontaneous Type of Anesthesia: Epidural EBL (cc): 300 Delivery, Single - Feeding Plan Initial Plan: Elected not to breastfeed exclusively throughout hospitalization Remarks - Remarks Remarks: Normal spontaneous vaginal delivery of a live infant boy over intact perineum. Nose / Oropharyn suctioned @ perineum. Cord clamped and cut. Placenta expelled spontaneously intact.
[2017-04-18] MEDS: ACETAMINOPHEN 325 MG TABLET (FP) PO PRN ×3 (02:13→23:01)
[2017-04-18] MEDS ORDERED: MEPERIDINE HCL CARPU-JECT 50 MG/1 ML DISP.SYRIN IM ONE (03:30)
[2017-04-18] MEDS ORDERED: METHYLERGONOVINE MALEATE 0.2 MG/1 ML AMP IM ONE (03:30)
[2017-04-18] MEDS ORDERED: PROMETHAZINE HCL 25 MG/1 ML VIAL IVPB ONE (03:45)
[2017-04-18] MEDS: OXYTOCIN 20 UNITS in 0.9% NS 1,000 ML IV SCH (05:21)
[2017-04-18] MEDS ORDERED: CARBOPROST TROMETHAMINE 250 MCG/ML AMPUL IM ONE (06:45)
[2017-04-18] MEDS: FERROUS SO4 325 MG TABLET (FP) PO SCH ×3 (08:00→18:14)
--- NOTE | 2017-04-18 09:46 | PN ---
Post Progress Note - Subjective Subjective: 32 yo Para 4 status post vaginal delivery, seen and evaluated. She c/o moderate right leg pain starting one day prior when labor started. She had one episode of vomiting after eating. She has h/o gastric ulcer prior to the . Post Day: 1 Type of Delivery: Vital Signs: Vital Signs Temperature 99.0 F 04/18/17 05:30 Pulse Rate 89 04/18/17 05:30 Respiratory Rate 20 04/18/17 05:30 Blood Pressure 120/71 04/18/17 05:30 O2 Sat by Pulse Oximetry (%) 100 04/18/17 00:15 Breast Exam: Yes: Soft Uterus: Yes: Fundus Firm Abdomen/GI: Yes: Abdomen soft, Other (Nause and vomiting) Lochia, amount: Heavy Extremities: Yes: Calves non-tender Perineum: Yes: Intact Activity: Other (Lying in bed and unable to ambulate) - Labs Labs: CBC WBC 8.3 K/mm3 (4.0-10.0) D 04/17/17 09:20 RBC 4.07 M/mm3 (3.60-5.2) D 04/17/17 09:20 Hgb 10.3 GM/dL (10.7-15.3) L 04/17/17 09:20 Hct 31.6 % (32.4-45.2) L 04/17/17 09:20 MCV 77.6 fl (80-96) L 04/17/17 09:20 MCH 25.3 pg (25.7-33.7) L D 04/17/17 09:20 MCHC 32.6 g/dl (32.0-36.0) 04/17/17 09:20 RDW 21.0 % (11.6-15.6) H D 04/17/17 09:20 Plt Count 109 K/MM3 (134-434) L D 04/17/17 09:20 MPV 7.8 fl (7.5-11.1) 04/17/17 09:20 Total Counted 100 04/17/17 09:20 Neutrophils % No Result Required. 04/17/17 09:20 Neutrophils % (Manual) 58 % (42.8-82.8) 04/17/17 09:20 Band Neuts % (Manual) 4 % (0-10) 04/17/17 09:20 Lymphocytes % No Result Required. 04/17/17 09:20 Lymphocytes % (Manual) 13 % (8-40) 04/17/17 09:20 Monocytes % (Manual) 6 % (3.8-10.2) 04/17/17 09:20 Eosinophils % (Manual) 12 % (0-4.5) H 04/17/17 09:20 Basophils % (Manual) 1 % (0-2.0) 04/17/17 09:20 Myelocytes % (Man) 3 % (0-2) H 04/17/17 09:20 Anisocytosis 1+ 04/17/17 09:20 Microcytosis 1+ 04/17/17 09:20 Ovalocytes 1+ 04/17/17 09:20 Problem List - Problems (1) Pain during labor Code(s): O99.89 - OTH DISEASES AND CONDITIONS COMPL PREG/CHLDBRTH R52 - PAIN, UNSPECIFIED (2) Gastric ulcer Code(s): K25.9 - GASTRIC ULCER, UNSP ACUTE OR CHRONIC, W/O HEMOR OR PERF (3) Leg pain, right Code(s): M79.604 - PAIN IN RIGHT LEG Assessment/Plan Status post vaginal delivery Gastric ulcer Nausea and vomiting Right leg pain Olive Pitter consult GI consult Pantoprazole Zofran Continue observation
[2017-04-18] MEDS ORDERED: METOCLOPRAMIDE HCL INJECTION 10 MG/2 ML VIAL IVPB PRN (09:47)
[2017-04-18] MEDS ORDERED: oxyCODONE HCL 5 MG TABLET ONE (09:58)
[2017-04-18] MEDS ORDERED: ACETAMINOPHEN 325 MG TABLET (FP) ONE (09:58)
[2017-04-18] MEDS ORDERED: PANTOPRAZOLE 40 MG TABLET (FP) PO SCH (10:00)
[2017-04-18] MEDS ORDERED: DIPHTH,PERTUSS(ACELL),TET 0.5 ML DISP.SYRIN IM ONE (10:00)
[2017-04-18] MEDS ORDERED: FLU VACC QS2017-18 36MOS UP/PF 60 MCG/0.5 ML SYRINGE IM ONE (10:00)
[2017-04-18] MEDS: PRENATAL VITAMINS W/ FOLIC ACID TABLET (FP) PO SCH (10:00)
[2017-04-18] MEDS ORDERED: ACETAMINOPHEN 325 MG TABLET (FP) PO PRN (10:21)
[2017-04-18 10:59] LABS: MCH 25.5 pg (25.7-33.7); MEAN CELL VOLUME 77.3 fl (80-96); MEAN PLT VOLUME 7.6 fl (7.5-11.1); PLATELET COUNT 92 K/MM3 (134-434); RDW 21.3 % (11.6-15.6); WHITE BLOOD COUNT 8.6 K/mm3 (4.0-10.0)
[2017-04-18 11:37] LABS: ALBUMIN 1.8 g/dl (3.4-5.0); ALK PHOS 524 U/L (45-117); ANION GAP 11 (8-16); BILIRUBIN,TOTAL 0.3 mg/dL (0.2-1.0); CALCIUM 7.8 mg/dL (8.5-10.1); CO2 20 mmol/L (21-32); CREATININE 0.5 mg/dL (0.55-1.02); GLUCOSE,RANDOM 79 mg/dL (74-106); SGOT/AST 50 U/L (15-37); SGPT/ALT 17 U/L (12-78); TOT PROT 4.7 g/dl (6.4-8.2)
[2017-04-18 12:10] LABS: METAMYELOCYTE 2 % (0-2); MYELOCYTE 1 % (0-2); NUCLEATED RED BLOOD CELL 1 % (0-0); PLATELET ESTIMATE DECREASED (NORMAL); TOTAL CELLS COUNTED 100
[2017-04-18] MEDS ORDERED: diazePAM 5 MG TABLET PO ONE (12:21)
--- NOTE | 2017-04-18 14:43 | CONS ---
DATE OF CONSULTATION: 04/18/2017 HISTORY OF PRESENT ILLNESS: The patient is a 32-year-old woman who was at 39.6. weeks' gestation, who was admitted to [facility] with labor pain. Patient also complained of pain in her right side of her lower back down her right lower extremity which started 1 day prior to admission. Patient on presentation was only 1 cm dilated, but because of the severe pain was not able to function or ambulate. The pain radiates from the right side of her back into the right buttocks down into the right thigh. She did not notice any increased pain with coughing or sneezing, but with moving her bowel she had severe pain. She did note that when she underwent an epidural placement for vaginal delivery that the pain was much more tolerable. Patient did give and the catheter has been removed. Patient now is having severe pain. I discussed the case with her , the patient, as well as with the nurse supervising breast feeding, and she has elected not to breast feed during the hospital course. She has been getting various pain medication but has not been able to get out of bed or ambulate to the bathroom. No arias numbness, tingling, but she does feel weak in the right lower extremity. No radiating pain into the left lower extremity. REVIEW OF PAST MEDICAL AND SURGICAL HISTORY: As above. No history of back problems. No history of any surgery. SOCIAL HISTORY: No tobacco, no alcohol or substance abuse. Premorbidly lived in an apartment with her spouse and 3 other children and was independent, ambulatory without assistive device. REVIEW OF SYSTEMS: No dizziness, lightheadedness. No chest pain or shortness of breath. No fever or chills. Again she has pain, but no bowel or bladder incontinence. No radiating pain into the left lower extremity. No numbness, tingling, or weakness of the upper extremities. Patient has no skin rash. PHYSICAL EXAMINATION: General: On examination patient is seen lying in bed. She is in a fair amount of distress with any examination of her right lower extremity, but no acute distress if she is not moving. HEENT: She is normocephalic and atraumatic. Extraocular muscles appear intact. Neck: Supple. Extremities: Without any pitting edema or calf tenderness. She is more tender proximally in the right anterior thigh and hip flexor muscles and diffusely tender throughout her right gluteal and sacral muscles on the right side. Skin: Without any breakdown or rash. Neuromuscular: She is awake, alert, oriented x3. Cranial nerves II through XII grossly intact. Good strength and range in the upper extremities and left lower extremity. She has leg pain with straight leg raise testing on the right but negative on the left. She has normal sensation to pinprick. Good distal strength in dorsiflexion, great toe extension, but a lot of proximal weakness which is difficult to grade due to pain, but only 1-2/5 in the hip flexors, knee extensors. Left lower extremity has good strength, again normal sensation to pinprick, symmetric reflex in the knee jerk and ankle jerk and tenderness in the right lumbosacral paraspinals , right gluteal musculature. LABORATORY: Review of current blood work: She has mild anemia but no drop in hemoglobin since admission. Currently hemoglobin 10.5, WBCs 8.6, and platelet count is slightly low at 92,000. INR was normal at 0.99. Chemistry showed sodium 137 , potassium 4.2, BUN 18, creatinine 0.5. AST slightly elevated at 50. ALT normal at 17. Alkaline phosphatase elevated at 524. OVERALL IMPRESSION: 1. Right-sided back pain radiating into the right lower extremity, possible lumbar disk herniation, possibly L3-4 or L4-5, less likely higher. 2. Right lower extremity weakness, possibly limited by pain and/or nerve root impingement. 3. Gait disorder. 4. Status post vaginal . 5. Mild anemia. 6. Mild thrombocytopenia. 7. Elevated AST and alkaline phosphatase. 8. Hypoalbuminemia and decreased total protein. PLAN/SUGGESTION: 1. MRI noncontrast lumbosacral spine to assess for disk herniation. 2. Ordered Valium 5 mg prior to MRI. 3. Start gabapentin 100 mg 3 times a day and increase to 200 mg 3 times a day tomorrow, further increase to 300 mg 3 times a day the following day if needed. 4. Would suggest a steroid taper, possibly 24 mg of Medrol today, decreasing by 4 mg daily until off in 6 days. 5. Consider neurologic consultation. 6. If pain persists and not explained by MRI, consider EMG in 3 weeks. 7. When able, start physical therapy. Will order. Thank you for this referral. JOLYNN SIDDIQUI M.D. JOSE/[id number] HARESH
[2017-04-18] MEDS: GABAPENTIN 100 MG CAPSULE (FP) PO SCH ×2 (16:34→21:37)
[2017-04-18] MEDS ORDERED: ONDANSETRON 4 MG/2 ML VIAL IVPB PRN (19:19)
--- NOTE | 2017-04-18 19:26 | CON.GI ---
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 This symptoms were present 1 year ago. She could not tolerate food. She was to undergo EGD but was noted to be . - Past Surgical History Past Surgical History: Yes: None - Alcohol/Substance Use Hx Alcohol Use: No History of Substance Use: reports: None - Smoking History Smoking history: Never smoked Have you smoked in the past 12 months: No - Social History History of Recent Travel: No Home Medications - Allergies Allergies/Adverse Reactions: Allergies Allergy/AdvReac Type Severity Reaction Status Date / Time No Known Allergies Allergy Verified 03/31/17 20:54 - Home Medications Home Medications: Ambulatory Orders Esomeprazole Magnesium [Nexium 24Hr] 20 mg PO DAILY 06/20/16 Esomeprazole Sodium 20 mg PO DAILY #20 vial 06/20/16 Hydrocortisone Acetate [Anusol Hc Suppository -] 25 mg RC DAILY #14 supp.rect Polyethylene Glycol 3350 [Miralax (For Bowel Prep) -] 17 gm PO DAILY #1 bottle 06/20/16 Famotidine [Pepcid] 20 mg PO DAILY #21 tablet 10/08/16 Docusate Sodium [Colace -] 100 mg PO BID #60 capsule 11/25/16 Polyethylene Glycol 3350 [Miralax (For Bowel Prep) -] 17 gm PO DAILY #1 bottle 11/25/16 Pantoprazole Sodium 40 mg IV DAILY #30 vial 01/04/17 Physical Exam-GI Vital Signs: Vital Signs Temperature 99.3 F 04/18/17 18:00 Pulse Rate 111 H 04/18/17 18:00 Respiratory Rate 20 04/18/17 18:00 Blood Pressure 113/59 04/18/17 18:00 O2 Sat by Pulse Oximetry (%) 99 04/18/17 07:30 Constitutional: Yes: Well Nourished, Poor Hygeine HENT: Yes: Atraumatic Neck: Yes: Supple Cardiovascular: Yes: Regular Rate and Rhythm Respiratory: Yes: CTA Bilaterally ...Palpate: Yes: Soft. No: Firm/Rigid, Guarding, Hepatomegaly, Mass, Splenomegaly, Tenderness, Epigastium (and ruq) Edema: No Labs: CBC, BMP 04/18/17 10:55 04/18/17 10:55 INR, PTT INR 0.99 (0.82-1.09) 04/17/17 09:20 CBCD WBC 8.6 K/mm3 (4.0-10.0) 04/18/17 10:55 RBC 4.11 M/mm3 (3.60-5.2) 04/18/17 10:55 Hgb 10.5 GM/dL (10.7-15.3) L 04/18/17 10:55 Hct 31.8 % (32.4-45.2) L 04/18/17 10:55 MCV 77.3 fl (80-96) L 04/18/17 10:55 MCHC 33.0 g/dl (32.0-36.0) 04/18/17 10:55 RDW 21.3 % (11.6-15.6) H 04/18/17 10:55 Plt Count 92 K/MM3 (134-434) L 04/18/17 10:55 MPV 7.6 fl (7.5-11.1) 04/18/17 10:55 CMP Sodium 137 mmol/L (136-145) 04/18/17 10:55 Potassium 4.2 mmol/L (3.5-5.1) 04/18/17 10:55 Chloride 106 mmol/L (98-107) 04/18/17 10:55 Carbon Dioxide 20 mmol/L (21-32) L 04/18/17 10:55 Anion Gap 11 (8-16) 04/18/17 10:55 BUN 18 mg/dL (7-18) 04/18/17 10:55 Creatinine 0.5 mg/dL (0.55-1.02) L 04/18/17 10:55 Creat Clearance w eGFR > 60 (>60) 04/18/17 10:55 Calcium 7.8 mg/dL (8.5-10.1) L 04/18/17 10:55 Total Bilirubin 0.3 mg/dL (0.2-1.0) D 04/18/17 10:55 AST 50 U/L (15-37) H D 10/10/17 10:55 ALT 17 U/L (12-78) D 04/18/17 10:55 Alkaline Phosphatase 524 U/L (45-117) H D 04/18/17 10:55 Total Protein 4.7 g/dl (6.4-8.2) L 04/18/17 10:55 Albumin 1.8 g/dl (3.4-5.0) L D 04/18/17 10:55 Problem List - Problems (1) Epigastric abdominal pain Assessment/Plan: r/o Peptic ulcer disease and cholelithiasis--biliary colic R> IV hydration Protonix, Reglan and Zofran 'abdominal ultrasound Code(s): R10.13 - EPIGASTRIC PAIN
[2017-04-18] MEDS: METOCLOPRAMIDE HCL INJECTION 10 MG/2 ML VIAL IVPB SCH (19:30)
[2017-04-18] MEDS: DEXTROSE 5%-NORMAL SALINE 1,000 ML IV SCH (22:00)
[2017-04-18] MEDS: PANTOPRAZOLE SODIUM 40 MG in SODIUM CHLORIDE 100 ML IVPB SCH (23:00)
[2017-04-19] MEDS: METOCLOPRAMIDE HCL INJECTION 10 MG/2 ML VIAL IVPB SCH ×3 (03:30→20:00)
[2017-04-19] MEDS: GABAPENTIN 100 MG CAPSULE (FP) PO SCH ×3 (05:58→22:13)
[2017-04-19] MEDS: DEXTROSE 5%-NORMAL SALINE 1,000 ML IV SCH (07:30)
[2017-04-19] MEDS: FERROUS SO4 325 MG TABLET (FP) PO SCH ×3 (09:02→17:43)
[2017-04-19] MEDS: PRENATAL VITAMINS W/ FOLIC ACID TABLET (FP) PO SCH (09:02)
[2017-04-19] MEDS: PANTOPRAZOLE SODIUM 40 MG in SODIUM CHLORIDE 100 ML IVPB SCH ×2 (09:10→22:12)
[2017-04-19] MEDS: oxyCODONE HCL 5 MG TABLET PO PRN ×2 (10:53→20:33)
[2017-04-19] MEDS: ACETAMINOPHEN 325 MG TABLET (FP) PO PRN ×2 (10:55→20:33)
--- NOTE | 2017-04-19 11:50 | PN ---
Post Progress Note - Subjective Subjective: 32 yo status post seen and evaluated. Great improvement. 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 She continues to complaint of right leg pain. Post Day: 2 Type of Delivery: Vital Signs: Vital Signs Temperature 99.5 F 04/18/17 22:00 Pulse Rate 105 H 04/18/17 22:00 Respiratory Rate 20 04/18/17 22:00 Blood Pressure 109/65 04/18/17 22:00 O2 Sat by Pulse Oximetry (%) 99 04/18/17 07:30 Breast Exam: Yes: Soft Uterus: Yes: Fundus Firm Abdomen/GI: Yes: Abdomen soft, Tolerating PO Lochia: Yes: Rubra Lochia, amount: Small Extremities: Yes: Calves non-tender Perineum: Yes: Laceration (Healing) Activity: Other (Patient has not been able to ambulate due to right leg pain) - Labs Labs: CBC WBC 8.6 K/mm3 (4.0-10.0) 04/18/17 10:55 RBC 4.11 M/mm3 (3.60-5.2) 04/18/17 10:55 Hgb 10.5 GM/dL (10.7-15.3) L 04/18/17 10:55 Hct 31.8 % (32.4-45.2) L 04/18/17 10:55 MCV 77.3 fl (80-96) L 04/18/17 10:55 MCH 25.5 pg (25.7-33.7) L 04/18/17 10:55 MCHC 33.0 g/dl (32.0-36.0) 04/18/17 10:55 RDW 21.3 % (11.6-15.6) H 04/18/17 10:55 Plt Count 92 K/MM3 (134-434) L 04/18/17 10:55 MPV 7.6 fl (7.5-11.1) 04/18/17 10:55 Total Counted 100 04/18/17 10:55 Neutrophils % No Result Required. 04/18/17 10:55 Neutrophils % (Manual) 72 % (42.8-82.8) D 04/18/17 10:55 Band Neuts % (Manual) 7 % (0-10) D 04/18/17 10:55 Lymphocytes % No Result Required. 04/18/17 10:55 Lymphocytes % (Manual) 10 % (8-40) D 04/18/17 10:55 Monocytes % (Manual) 5 % (3.8-10.2) 04/18/17 10:55 Eosinophils % (Manual) 3 % (0-4.5) 04/18/17 10:55 Basophils % (Manual) 1 % (0-2.0) 04/17/17 09:20 Myelocytes % (Man) 1 % (0-2) D 04/18/17 10:55 Nucleated RBC % 1 % (0-0) H 04/18/17 10:55 Platelet Estimate Decreased (NORMAL) 04/18/17 10:55 Platelet Comment No clumping noted 04/18/17 10:55 Anisocytosis 1+ 04/17/17 09:20 Microcytosis 1+ 04/17/17 09:20 Ovalocytes 1+ 04/17/17 09:20 Problem List - Problems (1) Pain during labor Code(s): O99.89 - OTH DISEASES AND CONDITIONS COMPL PREG/CHLDBRTH R52 - PAIN, UNSPECIFIED (2) Gastric ulcer Code(s): K25.9 - GASTRIC ULCER, UNSP ACUTE OR CHRONIC, W/O HEMOR OR PERF (3) Leg pain, right Code(s): M79.604 - PAIN IN RIGHT LEG Assessment/Plan Status post vaginal delivery Peptic ulcer Nausea and vomiting Right leg pain Continue antiemetic Continue analgesia F/U with physical therapist
--- NOTE | 2017-04-19 12:52 | CONSULT ---
Consult - text type - Consultation Consultation Note: Neurology - History of Present Illness History of Present Illness: 32 y/o female who was accompanied by her at bedside who also provided translation. She completed normal spontaneous vaginal delivery and has been having low back pain since prior to delivery. She reports difficulty and inability to ambulate. During my encounter when turning over to examiner lumbar spine, was moving RLE with sufficient strength to rotate self. Limited by pain but does have functionality. Sensation and reflexes intact. MRI L spine completed and reviewed in detail. No disc herniation or neural stenosis. - Past Surgical History Past Surgical History: None - Alcohol/Substance Use Hx Alcohol Use: No History of Substance Use: reports: None - Smoking History Smoking history: Never smoked Have you smoked in the past 12 months: No - Social History History of Recent Travel: No Home Medications - Allergies Allergies/Adverse Reactions: Allergies Allergy/AdvReac Type Severity Reaction Status Date / Time No Known Allergies Allergy Verified 03/31/17 20:54 - Home Medications Home Medications: Ambulatory Orders Esomeprazole Magnesium [Nexium 24Hr] 20 mg PO DAILY 06/20/16 Esomeprazole Sodium 20 mg PO DAILY #20 vial 06/20/16 Hydrocortisone Acetate [Anusol Hc Suppository -] 25 mg RC DAILY #14 supp.rect Polyethylene Glycol 3350 [Miralax (For Bowel Prep) -] 17 gm PO DAILY #1 bottle 06/20/16 Famotidine [Pepcid] 20 mg PO DAILY #21 tablet 10/08/16 Docusate Sodium [Colace -] 100 mg PO BID #60 capsule 11/25/16 Polyethylene Glycol 3350 [Miralax (For Bowel Prep) -] 17 gm PO DAILY #1 bottle 11/25/16 Pantoprazole Sodium 40 mg IV DAILY #30 vial 01/04/17 Physical Exam- Vital Signs: Vital Signs Temperature 99.3 F 04/18/17 18:00 Pulse Rate 111 H 04/18/17 18:00 Respiratory Rate 20 04/18/17 18:00 Blood Pressure 113/59 04/18/17 18:00 O2 Sat by Pulse Oximetry (%) 99 04/18/17 07:30 Constitutional: Yes: Well Nourished, Poor Hygeine HENT: Yes: Atraumatic Neck: Yes: Supple Cardiovascular: Yes: Regular Rate and Rhythm Respiratory: Yes: CTA Bilaterally Neuro: CN intact, no slurred speech, LUE and LLE strength intact, RLE limited by pain, 1-2/5 on testing but able to rotate self and at least 3/5, reflexes normal CBCD WBC 8.6 K/mm3 (4.0-10.0) 04/18/17 10:55 RBC 4.11 M/mm3 (3.60-5.2) 04/18/17 10:55 Hgb 10.5 GM/dL (10.7-15.3) L 04/18/17 10:55 Hct 31.8 % (32.4-45.2) L 04/18/17 10:55 MCV 77.3 fl (80-96) L 04/18/17 10:55 MCHC 33.0 g/dl (32.0-36.0) 04/18/17 10:55 RDW 21.3 % (11.6-15.6) H 04/18/17 10:55 Plt Count 92 K/MM3 (134-434) L 04/18/17 10:55 MPV 7.6 fl (7.5-11.1) 04/18/17 10:55 CMP Sodium 137 mmol/L (136-145) 04/18/17 10:55 Potassium 4.2 mmol/L (3.5-5.1) 04/18/17 10:55 Chloride 106 mmol/L (98-107) 04/18/17 10:55 Carbon Dioxide 20 mmol/L (21-32) L 04/18/17 10:55 Anion Gap 11 (8-16) 04/18/17 10:55 BUN 18 mg/dL (7-18) 04/18/17 10:55 Creatinine 0.5 mg/dL (0.55-1.02) L 04/18/17 10:55 Creat Clearance w eGFR > 60 (>60) 04/18/17 10:55 Calcium 7.8 mg/dL (8.5-10.1) L 04/18/17 10:55 Total Bilirubin 0.3 mg/dL (0.2-1.0) D 04/18/17 10:55 AST 50 U/L (15-37) H D 04/18/17 10:55 ALT 17 U/L (12-78) D 04/18/17 10:55 Alkaline Phosphatase 524 U/L (45-117) H D 04/18/17 10:55 Total Protein 4.7 g/dl (6.4-8.2) L 04/18/17 10:55 Albumin 1.8 g/dl (3.4-5.0) L D 04/18/17 10:55 MRI reviewed Plan 32 y/o female who was accompanied by her at bedside who also provided translation. She completed normal spontaneous vaginal delivery and has been having low back pain since prior to delivery. She reports difficulty and inability to ambulate. During my encounter when turning over to examiner lumbar spine, was moving RLE with sufficient strength to rotate self. Limited by pain but does have functionality. Sensation and reflexes intact. MRI L spine completed and reviewed in detail. No disc herniation or neural stenosis. Pain control, agree with Gabapentin as recommended by Dr. Pereira. Patient not . Physical therapy as tolerated. Can have EMG as outpatient in 3 weeks.
--- NOTE | 2017-04-19 20:13 | PN ---
GI Progress Note Subjective: abdominal pain improved tolerating diet - Objective Vital Signs: Vital Signs Temperature 98.3 F 04/19/17 14:00 Pulse Rate 88 04/19/17 14:00 Respiratory Rate 20 04/19/17 14:00 Blood Pressure 112/68 04/19/17 14:00 O2 Sat by Pulse Oximetry (%) 99 04/18/17 07:30 Constitutional: Well Nourished Eyes: Yes: Conjunctiva Clear, Occular Prosthesis HENT: Yes: Tonsillar Exudate Cardiovascular: Yes: Regular Rate and Rhythm Respiratory: Yes: CTA Bilaterally ...Palpate: Yes: Soft, Tenderness, Epigastium. No: Firm/Rigid, Guarding, Hepatomegaly, Mass, Pulsatile Mass, Splenomegaly Labs: CBC, BMP 04/18/17 10:55 04/18/17 10:55 INR, PTT INR 0.99 (0.82-1.09) 04/17/17 09:20 Problem List - Problems (1) Epigastric abdominal pain Assessment/Plan: --resolving R> continue IV hydration Simethicone 80 mg qid Code(s): R10.13 - EPIGASTRIC PAIN
[2017-04-19] MEDS: SENNOSIDES/DOCUSATE COMBO (SENNA PLUS) TABLET (UD) PO PRN (20:34)
[2017-04-19] MEDS: SIMETHICONE 80 MG TAB.CHEW (FP) PO SCH (23:40)
[2017-04-20] MEDS: METOCLOPRAMIDE HCL INJECTION 10 MG/2 ML VIAL IVPB SCH ×2 (03:55→11:29)
[2017-04-20] MEDS: GABAPENTIN 100 MG CAPSULE (FP) PO SCH ×3 (06:39→21:38)
[2017-04-20] MEDS: FERROUS SO4 325 MG TABLET (FP) PO SCH ×3 (08:55→17:40)
[2017-04-20] MEDS: ACETAMINOPHEN 325 MG TABLET (FP) PO PRN ×3 (09:56→21:37)
[2017-04-20] MEDS: oxyCODONE HCL 5 MG TABLET PO PRN ×3 (10:00→21:35)
[2017-04-20] MEDS: PANTOPRAZOLE SODIUM 40 MG in SODIUM CHLORIDE 100 ML IVPB SCH ×2 (10:01→21:37)
[2017-04-20] MEDS: SIMETHICONE 80 MG TAB.CHEW (FP) PO SCH ×4 (10:01→21:37)
--- NOTE | 2017-04-20 10:08 | PN ---
Progress Note (short form) - Note Progress Note: Neurology - History of Present Illness History of Present Illness: 32 y/o female who was accompanied by her at bedside who also provided translation. She completed normal spontaneous vaginal delivery and has been having low back pain since prior to delivery. She reports difficulty and inability to ambulate. During my encounter is able to stand but with assist from . Has lumbosacral low back pain, muscular, paraspinal tenderness, but better than yesterday. Movements limited by pain but does have functionality. Sensation and reflexes intact. MRI L spine completed and reviewed in detail. No disc herniation or neural stenosis. 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 ONE Stop: 04/18/17 12:22 Ferrous Sulfate (Feosol -) 325 mg PO TIDCM [facility] Last Admin: 04/20/17 08:55 Dose: Not Given Gabapentin (Neurontin -) 100 mg PO TID [facility] Last Admin: 04/20/17 06:39 Dose: 100 mg Lactated Ringer's (Lactated Ringers Solution) 1,000 mls @ 125 mls/hr IV ASDIR [facility] Last Admin: 04/17/17 09:00 Dose: 125 mls/hr Parenteral Electrolytes (Plasma-Lyte 148 -) 1,000 mls @ 125 mls/hr IV ASDIR [facility] Last Admin: 04/17/17 18:00 Dose: 125 mls/hr Oxytocin/Sodium Chloride (Normal Saline+20 Units Oxytocin -) 1,000 mls @ 125 mls/hr IV ASDIR [facility] Last Admin: 04/18/17 05:21 Dose: 125 mls/hr Pantoprazole Sodium 40 mg/ (Sodium Chloride) 100 mls @ 200 mls/hr IVPB BID [facility] Last Admin: 04/20/17 10:01 Dose: 200 mls/hr Dextrose/Sodium Chloride (D5-Ns -) 1,000 mls @ 175 mls/hr IV ASDIR [facility] Stop: 04/21/17 01:13 Last Admin: 04/19/17 07:30 Dose: 175 mls/hr Methylergonovine Maleate (Methergine Injection -) 0.2 mg IM Q4H PRN PRN Reason: EXCESSIVE BLEEDING (L&D) Last Admin: 04/18/17 02:12 Dose: 0.2 mg Metoclopramide HCl (Reglan Injection -) 10 mg IVPB Q8H [facility] Last Admin: 04/20/17 03:55 Dose: Not Given Ondansetron HCl (Zofran Injection) 4 mg IVPB Q4H PRN Oxycodone HCl (Roxicodone -) 5 mg PO Q4H PRN PRN Reason: PAIN LEVEL 1-5 Last Admin: 04/20/17 10:00 Dose: 5 mg Multivit/Folic Acid/Iron ( Vitamins (Sjr) -) 1 tab PO DAILY [facility] Last Admin: 04/19/17 09:02 Dose: 1 tab Senna/Docusate Sodium (Pericolace -) 2 tablet PO HS PRN PRN Reason: CONSTIPATION Last Admin: 04/19/17 20:34 Dose: 2 tablet Simethicone (Mylicon -) 80 mg PO QID [facility] Last Admin: 04/20/17 10:01 Dose: 80 mg Tuberculin PPD (Tubersol Intermediate Strength) 5 tu ID ONCE ONE Stop: 04/17/17 09:17 Witch Jessica/Glycerin (Tucks Pads -) 1 pad TP PRN PRN PRN Reason: PAIN Physical Exam- Vital Signs: Vital Signs Period Temp Pulse Resp BP Sys/Lopes Pulse Ox Last 24 Hr 98.3 F-99.4 F 85-88 20-20 112-116/68-68 Constitutional: Yes: Well Nourished, Poor Hygeine HENT: Yes: Atraumatic Neck: Yes: Supple Cardiovascular: Yes: Regular Rate and Rhythm Respiratory: Yes: CTA Bilaterally Neuro: CN intact, no slurred speech, LUE and LLE strength intact, RLE limited by pain, 1-2/5 on testing but able to rotate self and at least 3/5, reflexes normal CBCD WBC 8.6 K/mm3 (4.0-10.0) 04/18/17 10:55 RBC 4.11 M/mm3 (3.60-5.2) 04/18/17 10:55 Hgb 10.5 GM/dL (10.7-15.3) L 04/18/17 10:55 Hct 31.8 % (32.4-45.2) L 04/18/17 10:55 MCV 77.3 fl (80-96) L 04/18/17 10:55 MCHC 33.0 g/dl (32.0-36.0) 04/18/17 10:55 RDW 21.3 % (11.6-15.6) H 04/18/17 10:55 Plt Count 92 K/MM3 (134-434) L 04/18/17 10:55 MPV 7.6 fl (7.5-11.1) 04/18/17 10:55 CMP Sodium 137 mmol/L (136-145) 04/18/17 10:55 Potassium 4.2 mmol/L (3.5-5.1) 04/18/17 10:55 Chloride 106 mmol/L (98-107) 04/18/17 10:55 Carbon Dioxide 20 mmol/L (21-32) L 04/18/17 10:55 Anion Gap 11 (8-16) 04/18/17 10:55 BUN 18 mg/dL (7-18) 04/18/17 10:55 Creatinine 0.5 mg/dL (0.55-1.02) L 04/18/17 10:55 Creat Clearance w eGFR > 60 (>60) 04/18/17 10:55 Calcium 7.8 mg/dL (8.5-10.1) L 04/18/17 10:55 Total Bilirubin 0.3 mg/dL (0.2-1.0) D 04/18/17 10:55 AST 50 U/L (15-37) H D 04/18/17 10:55 ALT 17 U/L (12-78) D 04/18/17 10:55 Alkaline Phosphatase 524 U/L (45-117) H D 04/18/17 10:55 Total Protein 4.7 g/dl (6.4-8.2) L 04/18/17 10:55 Albumin 1.8 g/dl (3.4-5.0) L D 04/18/17 10:55 MRI reviewed Plan 32 y/o female who was accompanied by her at bedside who also provided translation. She completed normal spontaneous vaginal delivery and has been having low back pain since prior to delivery. She reports difficulty and inability to ambulate. During my encounter when turning over to examiner lumbar spine, was moving RLE with sufficient strength to rotate self. Limited by pain but does have functionality. Sensation and reflexes intact. MRI L spine completed and reviewed in detail. No disc herniation or neural stenosis. Pain control, agree with Gabapentin as recommended by Dr. Pereira. Patient not . Physical therapy as tolerated. Can have EMG as outpatient in 3 weeks. Improved symptoms, if ambulating, consider discharge planning.
[2017-04-20] MEDS: PRENATAL VITAMINS W/ FOLIC ACID TABLET (FP) PO SCH (10:28)
--- NOTE | 2017-04-20 12:30 | PN ---
Post Note - Post Date of Delivery: 04/17/17 Vital Signs: Vital Signs - 24 hr 04/19/17 04/19/17 04/20/17 14:00 22:00 07:30 Temperature 98.3 F 99.4 F 99.1 F Pulse Rate 88 85 76 Respiratory 20 20 20 Rate Blood Pressure 112/68 116/68 132/87 - Subjective Subjective: Other (Unable to walk stomach pain) - Objective Afebrile: Yes Breast: Not engorged Abdomen: Soft, Non-tender Uterus: Fundus firm Vagina: Scant lochia Extremities: Non-tender - Assessment/Plan (1) Gastric ulcer Assessment: S/P Normal Plan: Routine Care (3) Leg pain, right Assessment: S/P Normal Plan: Routine Care, Other ([place] home pre consults)
[2017-04-20] MEDS: SENNOSIDES/DOCUSATE COMBO (SENNA PLUS) TABLET (UD) PO PRN (21:38)
[2017-04-21] MEDS: FENTANYL/BUPIVACAINE/NS/PF - PCEA - 50 ML DISP.SYRIN EP SCH (02:20)
[2017-04-21] MEDS: ACETAMINOPHEN 325 MG TABLET (FP) PO PRN ×2 (03:43→12:02)
[2017-04-21] MEDS: oxyCODONE HCL 5 MG TABLET PO PRN ×3 (03:43→12:03)
[2017-04-21] MEDS: GABAPENTIN 100 MG CAPSULE (FP) PO SCH (05:49)
[2017-04-21] MEDS: FERROUS SO4 325 MG TABLET (FP) PO SCH ×2 (08:45→13:25)
[2017-04-21 09:55] VITALS: BP 130/76; PULSE 67; TEMP 97.8
--- NOTE | 2017-04-21 10:38 | PN ---
Progress Note (short form) - Note Progress Note: Neurology - History of Present Illness History of Present Illness: 32 y/o female who was accompanied by her at bedside who also provided translation. She completed normal spontaneous vaginal delivery and has been having low back pain since prior to delivery. She reports difficulty and inability to ambulate. During my encounter is able to stand but with assist from . Has lumbosacral low back pain, muscular, paraspinal tenderness, but better than yesterday. Movements limited by pain but does have functionality. Sensation and reflexes intact. MRI L spine completed and reviewed in detail. No disc herniation or neural stenosis. Doing well and planend for discharge. Arabella barakat at bedside. Active Medications Acetaminophen (Tylenol -) 650 mg PO Q3H PRN PRN Reason: PAIN Last Admin: 04/21/17 03:43 Dose: 650 mg Acetaminophen (Tylenol -) 325 mg PO Q4H PRN PRN Reason: PAIN LEVEL 1-5 Benzocaine (Americaine Ointment -) 1 applic TP PRN PRN PRN Reason: PAIN Benzocaine (Americaine 20% [place] -) 1 spray TP PRN PRN PRN Reason: PAIN Bisacodyl (Dulcolax Suppository -) 10 mg RC PRN PRN PRN Reason: CONSTIPATION Last Admin: 04/20/17 21:35 Dose: 10 mg Ferrous Sulfate (Feosol -) 325 mg PO TIDCM [facility] Last Admin: 04/21/17 08:45 Dose: Not Given Gabapentin (Neurontin -) 100 mg PO TID [facility] Last Admin: 04/21/17 05:49 Dose: 100 mg Parenteral Electrolytes (Plasma-Lyte 148 -) 1,000 mls @ 125 mls/hr IV ASDIR [facility] Last Admin: 04/17/17 18:00 Dose: 125 mls/hr Oxytocin/Sodium Chloride (Normal Saline+20 Units Oxytocin -) 1,000 mls @ 125 mls/hr IV ASDIR [facility] Last Admin: 04/18/17 05:21 Dose: 125 mls/hr Pantoprazole Sodium 40 mg/ (Sodium Chloride) 100 mls @ 200 mls/hr IVPB BID [facility] Last Admin: 04/20/17 21:37 Dose: 200 mls/hr Methylergonovine Maleate (Methergine Injection -) 0.2 mg IM Q4H PRN PRN Reason: EXCESSIVE BLEEDING (L&D) Last Admin: 04/18/17 02:12 Dose: 0.2 mg Oxycodone HCl (Roxicodone -) 5 mg PO Q4H PRN PRN Reason: PAIN LEVEL 1-5 Last Admin: 04/21/17 08:46 Dose: 5 mg Multivit/Folic Acid/Iron ( Vitamins (Sjr) -) 1 tab PO DAILY [facility] Last Admin: 04/20/17 10:28 Dose: Not Given Senna/Docusate Sodium (Pericolace -) 2 tablet PO HS PRN PRN Reason: CONSTIPATION Last Admin: 04/20/17 21:38 Dose: 2 tablet Simethicone (Mylicon -) 80 mg PO QID [facility] Last Admin: 04/20/17 21:37 Dose: 80 mg Witch Jessica/Glycerin (Tucks Pads -) 1 pad TP PRN PRN PRN Reason: PAIN Physical Exam- Vital Signs: Vital Signs Period Temp Pulse Resp BP Sys/Lopes Pulse Ox Last 24 Hr 97.8 F-98.7 F 67-86 20-20 118-131/65-83 Constitutional: Yes: Well Nourished, Poor Hygeine HENT: Yes: Atraumatic Neck: Yes: Supple Cardiovascular: Yes: Regular Rate and Rhythm Respiratory: Yes: CTA Bilaterally Neuro: CN intact, no slurred speech, LUE and LLE strength intact, RLE limited by pain, 1-2/5 on testing but able to rotate self and at least 3/5, reflexes normal CBCD WBC 8.6 K/mm3 (4.0-10.0) 04/18/17 10:55 RBC 4.11 M/mm3 (3.60-5.2) 04/18/17 10:55 Hgb 10.5 GM/dL (10.7-15.3) L 04/18/17 10:55 Hct 31.8 % (32.4-45.2) L 04/18/17 10:55 MCV 77.3 fl (80-96) L 04/18/17 10:55 MCHC 33.0 g/dl (32.0-36.0) 04/18/17 10:55 RDW 21.3 % (11.6-15.6) H 04/18/17 10:55 Plt Count 92 K/MM3 (134-434) L 04/18/17 10:55 MPV 7.6 fl (7.5-11.1) 04/18/17 10:55 CMP Sodium 137 mmol/L (136-145) 04/18/17 10:55 Potassium 4.2 mmol/L (3.5-5.1) 04/18/17 10:55 Chloride 106 mmol/L (98-107) 04/18/17 10:55 Carbon Dioxide 20 mmol/L (21-32) L 04/18/17 10:55 Anion Gap 11 (8-16) 04/18/17 10:55 BUN 18 mg/dL (7-18) 04/18/17 10:55 Creatinine 0.5 mg/dL (0.55-1.02) L 04/18/17 10:55 Creat Clearance w eGFR > 60 (>60) 04/18/17 10:55 Calcium 7.8 mg/dL (8.5-10.1) L 04/18/17 10:55 Total Bilirubin 0.3 mg/dL (0.2-1.0) D 04/18/17 10:55 AST 50 U/L (15-37) H D 04/18/17 10:55 ALT 17 U/L (12-78) D 04/18/17 10:55 Alkaline Phosphatase 524 U/L (45-117) H D 04/18/17 10:55 Total Protein 4.7 g/dl (6.4-8.2) L 04/18/17 10:55 Albumin 1.8 g/dl (3.4-5.0) L D 04/18/17 10:55 MRI reviewed Plan 32 y/o female who was accompanied by her at bedside who also provided translation. She completed normal spontaneous vaginal delivery and has been having low back pain since prior to delivery. She reports difficulty and inability to ambulate. During my encounter when turning over to examiner lumbar spine, was moving RLE with sufficient strength to rotate self. Limited by pain but does have functionality. Sensation and reflexes intact. MRI L spine completed and reviewed in detail. No disc herniation or neural stenosis. Pain control, agree with Gabapentin as recommended by Dr. Pereira. Patient not . IMproving symptoms, provided walker, for discharge today.
[2017-04-21] MEDS: PRENATAL VITAMINS W/ FOLIC ACID TABLET (FP) PO SCH (10:39)
[2017-04-21] MEDS: SIMETHICONE 80 MG TAB.CHEW (FP) PO SCH (10:40)
[2017-04-21] MEDS: PANTOPRAZOLE SODIUM 40 MG in SODIUM CHLORIDE 100 ML IVPB SCH (13:25)
--- NOTE | 2017-04-21 17:43 | PN ---
Progress Note (short form) - Note Progress Note: Physical Medicine and Rehabilitation follow up The patient was seen and examined this am at the bedside with her present. MRI LS spine reviewed with them and negative for disc herniation. Pain much more tolerable and patient able to stand and ambulate with husbands assistance. Also ambulated with physical therapy yesterday. To be discharged home today. No numbness or tingling. Occasional pain radiating from lower back to right leg but not constant. Exam lying in bed NAD Ext no edema or calf tenderness Skin: no erythema, ecchymosis in lower back or right leg, no rash N/M: Negative SLR bilateral lower limbs, at least 3/5 motor strength proximal right lower limb with 5/5 left lower limb and right DF/PF. normal sensation. Mild right LS and right gluteal tenderness. A/P LBP radiating to right leg now improved, ? muscular origin. Will fu as outpatient. Have written orders for physical therapy and continue Gabapentin. Zia Saldana MD
== END 2017-04-21 13:55 | disposition home or self-care (01) | DRG 560 ==
LOC: JDEL 06:30 → JLDR 08:42 → J3W 04-18 01:10
PROVIDERS: ADMIT Obstetrics & Gynecology; ATTEND Obstetrics & Gynecology
PROC: 10E0XZZ Delivery of Products of Conception, External Approach (ICD-10-PCS; principal; 2017-04-17)
DX: O26.893 Other specified pregnancy related conditions, third trimester (principal); M54.5 Low back pain; Z87.11 Personal history of peptic ulcer disease; O75.89 Other specified complications of labor and delivery; R11.2 Nausea with vomiting, unspecified; M79.604 Pain in right leg; Z3A.39 39 weeks gestation of pregnancy; Z37.0 Single live birth
CPT/HCPCS: 36415; 59409; 71010-TC; 72148-TC; 76705-TC; 80048; 80053; 85025; 85610; 85730; 86593; 86850; 86900; 86901; 87389; 90686; 90715; 97116-GP; 97161-GP; G0008